=== PATIENT | female | born 1950 | race African-American/Black ===

== ENCOUNTER 2020-07-16 06:14 | Day surgery (SDC) | payer OTHER ==
[~2020-07-16] VITALS: Ht 162.6 cm; Wt 81.6 kg
[~2020-07-16 06:14] MED LIST: ALBU108A5 IN; AMLO5TAB15 PO; BECL80AE11 IN; BUSP5TAB51 PO; DICL1GEL50 TD; FAMO20TA10 PO; FLUO40CA75 PO; IPRA0.00 IN; LEVO150T10 PO; NORT10CA PO; POTA-220 PO; PRAV20TA3 PO; TRIATAB3 PO
[2020-07-16] MEDS ORDERED: ceFAZolin 1GM/50ML 100 ML IV ONE (06:45)
[2020-07-16] MEDS ORDERED: BUPIVACAINE 0.25% INJ 50ML VIAL ONE (06:56)
[2020-07-16] MEDS ORDERED: LIDOCAINE W/ EPINEPHRINE 1% 20ML VIAL ONE (06:56)
[2020-07-16] MEDS ORDERED: MIDAZOLAM HCL 1MG/1ML-2 ML VIAL ONE (07:26)
[2020-07-16] MEDS ORDERED: GLYCOPYRROLATE 0.2 MG/ML 1ML VIAL ONE (07:26)
[2020-07-16] MEDS ORDERED: KETAMINE HCL 10 ML ONE (07:26)
[2020-07-16] MEDS ORDERED: LIDOCAINE 2% (LOCAL ANESTH.) PF 5ml SDV ONE (07:26)
[2020-07-16] MEDS ORDERED: ONDANSETRON HCL 4 MG/2 ML VIAL ONE (07:26)
[2020-07-16] MEDS ORDERED: PROPOFOL 10 MG/ML 20 ML IV ONE (07:26)
[2020-07-16] MEDS ORDERED: HYDROmorphone HCL 2 MG/ML VL IV PRN (08:30)
[2020-07-16] MEDS ORDERED: ONDANSETRON HCL 4 MG/2 ML VIAL IV PRN (08:30)
[2020-07-16 08:40] VITALS: BP 157/89
== END 2020-07-16 09:10 | disposition home or self-care (01) ==
LOC: SUR 06:14
PROVIDERS: ATTEND Surgery
DX: L72.3 Sebaceous cyst (principal); J45.909 Unspecified asthma, uncomplicated; K21.9 Gastro-esophageal reflux disease without esophagitis; I10 Essential (primary) hypertension; E07.9 Disorder of thyroid, unspecified; E66.9 Obesity, unspecified; Z90.710 Acquired absence of both cervix and uterus; Z98.890 Other specified postprocedural states; Z20.828 Contact with and (suspected) exposure to other viral communicable diseases; Z68.30 Body mass index [BMI] 30.0-30.9, adult
CPT/HCPCS: 11402; 88304; J0690; J2001; J2250; J2405; J2704; J3490; U0003; A4565